=== PATIENT | male | born 1980 | race Two or more races ===

== ENCOUNTER 2021-12-04 15:11 | Emergency (ER) | payer SELFPAY ==
[~2021-12-04] VITALS: Ht 172.7 cm; Wt 77.1 kg
[2021-12-04] MEDS ORDERED: SODIUM CHLORIDE 0.9% 1,000 ML IVB ONE (15:45)
[2021-12-04] MEDS ORDERED: KETOROLAC TROMETH 30 MG/ML 1ML VIAL IV ONE (15:45)
[2021-12-04 16:24] LABS: Basophils # (auto) 0 10 ^3/uL (0-0.2); Eosinophils # (auto) 0 10 ^3/uL (0-0.8); Eosinophils % (auto) 0.2 % (0.0-7.0); Hematocrit 49.5 % (41.0-53.0); Hemoglobin 17.3 g/dL (13.5-17.5); Lymphocytes # (auto) 0.8 10 ^3/uL (0.4-5.4); Lymphocytes % (auto) 24.3 % (10.0-50.0); Mean Corpuscular Hemoglobin 32.7 pg (28.0-32.0); Mean Corpuscular Volume 93.6 fL (80.0-100.0); Monocytes # (auto) 0.2 10 ^3/uL (0-1.3); Monocytes % (auto) 5.2 % (0.0-12.0); Neutrophils # (auto) 2.3 10 ^3/uL (1.6-8.6); Neutrophils % (auto) 69.3 % (37.0-80.0); Nucleated Red Blood Cells % 0.3 %; Red Blood Cells 5.29 10^6/uL (4.5-5.90); Red Cell Distribution Width 13.3 % (11.8-14.3); White Blood Cell 3.3 10^3/uL (4.4-10.8)
[2021-12-04 16:31] LABS: Potassium 4.3 mmol/L (3.5-5.1)
[2021-12-04 16:38] LABS: Albumin 4.3 g/dL (3.4-5.0); BUN/Creatinine Ratio 9.5; Calcium 9.2 mg/dL (8.5-10.1); Total Protein 8.2 g/dL (6.4-8.2)
[2021-12-04] MEDS ORDERED: LISI20TA28 PO (19:17)
[2021-12-04 19:25] VITALS: BP 152/102
== END 2021-12-04 20:08 | disposition home or self-care (01) ==
LOC: ER 15:11
DX: I16.0 Hypertensive urgency (principal); M79.10 Myalgia, unspecified site; R51.9 Headache, unspecified
CPT/HCPCS: 36415; 70450; 74176; 80053; 82150; 83690; 85025; 93005; 96361; 96374; 99285; J1885; J7030; 96360